=== PATIENT | female | born 1945 | race Caucasian/White ===

== ENCOUNTER 2022-12-01 22:29 | Emergency (ER) | payer SELFPAY ==
[2022-12-01] MEDS ORDERED: Morphine 4 MG/ML VIAL ONE (23:09)
[2022-12-02] MEDS ORDERED: HYDROcodone/Acetaminophen 5/325 mg Tablet ONE (07:39)
== END 2022-12-02 08:49 | disposition home or self-care (01) ==
LOC: BURERS 22:29
DX: M54.50 Low back pain, unspecified (principal); G89.4 Chronic pain syndrome; E78.00 Pure hypercholesterolemia, unspecified; I25.10 Atherosclerotic heart disease of native coronary artery without angina pectoris; I11.0 Hypertensive heart disease with heart failure; I50.9 Heart failure, unspecified; J44.9 Chronic obstructive pulmonary disease, unspecified; Z79.899 Other long term (current) drug therapy
CPT/HCPCS: 96372; 99283; J2270